=== PATIENT | male | born 1960 | race Caucasian/White ===

== ENCOUNTER 2018-05-24 11:41 | Emergency (ER) | payer MEDICAID ==
[2018-05-24] MEDS ORDERED: Ondansetron 4 MG Tab.DIS PO PRN (12:55)
[2018-05-24] MEDS ORDERED: cefTRIAXone 1 GM Vial IM ONE (14:12)
[2018-05-24] MEDS ORDERED: cefTRIAXone 1 GM Vial ONE (14:22)
[2018-05-24 15:45] VITALS: BP 125/96
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
--- NOTE | 2018-05-24 18:21 | CT ---
DATE OF SERVICE: 05/24/18 CLINICAL DATA: abdomen pain UNENHANCED ABDOMEN AND PELVIC CT: Multislice acquisition through the abdomen and pelvis without IV or oral contrast was performed. No priors. There are minimal atelectatic changes in both lung bases. There is mild mural thickening within the distal esophagus. Esophagitis should be considered. There are surgical changes involving gastroesophageal junction region and stomach. The unenhanced liver appears normal. No focal hepatic lesions. The gallbladder is absent and there are surgical clips in the gallbladder fossa. Spleen appears normal. The pancreas appears normal. The right and left adrenals appear normal. The right and left kidneys appear normal. No nephrocalcinosis or nephrolithiasis. No hydronephrosis or hydroureter. The bladder is partially fluid-filled. It appears normal. No evidence of appendicitis. There are surgical changes involving a couple loops of small bowel within the upper abdomen on the left. There are multiple fluid-filled loops of small bowel in the left mid and lower abdomen. They do contain air-fluid levels. A couple of these are mildly dilated. Enteritis should be considered. Developing obstruction or ileus cannot, however, be excluded and followup imaging is recommended if clinically indicated. There is mild diverticulosis of the descending and sigmoid colon. No definite evidence of diverticulitis. There is mild mural thickening within the descending and sigmoid colon, most likely related to nondistension. Colitis should be considered. No free air. No free fluid. No adenopathy. No aortic aneurysm. There is a small umbilical hernia containing fat. IMPRESSION: Multiple findings as discussed above. [id number] [facility]
== END 2018-05-24 14:50 | disposition home or self-care (01) ==
LOC: LB.ED 11:41
DX: K56.7 Ileus, unspecified (principal); K52.9 Noninfective gastroenteritis and colitis, unspecified; Z88.8 Allergy status to other drugs, medicaments and biological substances
CPT/HCPCS: 36415; 74176; 80053; 83690; 84443; 84484; 85025; 93005; 96372; 99284; J0696

== ENCOUNTER → 2019-10-12 | Outpatient (CLI) | payer MEDICARE, OTHER ==
[2019-10-12 11:47] LABS: HEMOGLOBIN A1C 5.8 % (< 5.7)
[2019-10-15 08:08] LABS: IRON BIND.CAP.(TIBC) 367 ug/dL (250-450); IRON SATURATION 12 % (15-55); IRON, SERUM 43 ug/dL (38-169); UIBC 324 ug/dL (111-343)
== END ==
LOC: LB.CLINIC 11:08
PROVIDERS: ATTEND Nurse Practitioner Family
DX: R68.89 Other general symptoms and signs (principal); K90.9 Intestinal malabsorption, unspecified; R73.9 Hyperglycemia, unspecified
CPT/HCPCS: 36415; 82728; 83036; 83540; 83550; 84443

== ENCOUNTER 2020-01-25 10:01 | Day surgery (SDC) | payer MEDICARE ==
[~2020-01-25 10:01] MED LIST: Metoclopramide 10 MG/2 ML SDV IV PRN
[2020-01-25] MEDS: Sodium Chloride 0.9% 1,000 ML IV SCH (10:29)
[2020-01-25] MEDS ORDERED: Propofol 1,000 MG/100 ML SDV ONE (12:00)
[2020-01-25 15:49] VITALS: BP 127/72; PULSE 57
--- NOTE | 2020-01-25 19:05 | OR ---
DATE OF OPERATION: 01/25/2020 SURGEON: Ahmet Muir MD PREOPERATIVE DIAGNOSIS: Iron deficiency. POSTOPERATIVE DIAGNOSIS: Iron deficiency. PROCEDURE: EGD and colonoscopy with polypectomy and biopsies. ANESTHESIA: MAC. ESTIMATED BLOOD LOSS: Minimal. COMPLICATIONS: None. INDICATION FOR THE PROCEDURE: The patient is a 59-year-old male who does have severe iron deficiency, although he is not technically anemic, has received iron transfusions in the past, has never had any EGD or colonoscopy before. Denies any change in bowel habits. No melena. No hematochezia. The patient was brought to the OR today for EGD and colonoscopy. DESCRIPTION OF PROCEDURE: Informed consent was obtained with the patient. The patient was taken to the operating room and placed on the table in the left lateral decubitus position. Monitored anesthesia care was administered. 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 The jejunal to gastric anastomosis showed no signs of marginal ulceration, no blood, no inflammation in the stomach. The GE junction was also unremarkable. Esophagogastroscope then withdrawn. Then, performed digital rectal exam which was unremarkable. Colonoscope was then advanced through the anus and directed toward the cecum. Cecum was reached and identified by appendiceal orifice and ileocecal valve. Colonoscope was then slowly withdrawn. In the ascending colon, he did have a very broad sessile polyp. Biopsies of this were taken to rule out cancer. We will need EMR for this in the future. Otherwise, too large to remove in this setting. This was in the mid to distal ascending colon. Several centimeters distal to this had a semipedunculated polyp. Several cold forceps biopsies taken of this to rule out cancer as well. There was another small 2 mm sessile transverse colon polyp. This was removed with hot biopsy polypectomy. In the descending colon, also a small 2 mm sessile polyp, also removed with hot biopsy polypectomy. Did have some sigmoid diverticulosis, mild. Rectum was otherwise unremarkable. Colonoscope was then withdrawn. FINDINGS: Two small, sessile polyps removed. These appear benign. Semipedunculated polyp in the ascending colon, which was biopsied also, it was benign, and large sessile polyp in the ascending colon. Biopsies taken to rule out cancer. RECOMMENDATIONS: I will follow up on biopsy results. We will either need a repeat colonoscopy for endoscopic mucosal resection or surgery depending on pathology results. NATO/JEFFRY /[id number]
== END 2020-01-25 13:30 | disposition home or self-care (01) ==
LOC: LB.SDS 10:01
PROVIDERS: ATTEND Surgery
DX: D12.2 Benign neoplasm of ascending colon (principal); D12.4 Benign neoplasm of descending colon; D12.3 Benign neoplasm of transverse colon; K57.30 Diverticulosis of large intestine without perforation or abscess without bleeding; E61.1 Iron deficiency; Z88.5 Allergy status to narcotic agent; Z88.1 Allergy status to other antibiotic agents
CPT/HCPCS: 43235; 43246; 45380; 45384; 88305; G0121; J2704; J7030